=== PATIENT | male | born 1990 | race Caucasian/White ===

== ENCOUNTER → 2022-04-05 12:27 | Outpatient (BNVA) | payer SELFPAY | PROVIDERS: PCP Family Medicine; Visit Provider Emergency Medicine | DX: S99.911A Unspecified injury of right ankle, initial encounter (principal); X58.XXXA Exposure to other specified factors, initial encounter; M79.89 Other specified soft tissue disorders | CPT/HCPCS: 73610 ==

== ENCOUNTER 2024-10-20 | Emergency (ER) | payer SELFPAY ==
[2024-10-20 00:21] VITALS: BP 123/85; PULSE 91; RESP 15; TEMP 36.7; O2SAT 96; BMI 24.3
--- NOTE | 2024-10-20 00:46 | ED_ITS ---
HPI - Eye Problem General: Chief complaint: Eye Problems Stated complaint: got a Piece of metal in R eye Time Seen by Provider: 10/20/24 00:38 History of Present Illness: 34-year-old man who developed right eye pain this afternoon. He says he did well earlier today. He says he was using safety goggles and his guard. He says the pain developed later this afternoon. He has some redness in his eye. Related Data Previous Rx's ?Medication ?Instructions ?Recorded tramadol 50 mg tablet 50 mg PO Q4H PRN pain 7 days #28 04/05/22 tabs polymyxin B sulfate 10,000 1 drp ophthalmic (eye) Q3H 7 days 10/20/24 unit-trimethoprim 1 mg/mL eye drops #10 mL Allergies Allergy/AdvReac Type Severity Reaction Status Date / Time No Known Allergies Allergy Unverified 04/05/22 12:09 Review of Systems Narrative: Constitutional symptoms: Negative except as documented in HPI. Skin symptoms: Negative except as documented in HPI. Eye symptoms: Negative except as documented in HPI. ENMT symptoms: Negative except as documented in HPI. Respiratory symptoms: Negative except as documented in HPI. Cardiovascular symptoms: Negative except as documented in HPI. Gastrointestinal symptoms: Negative except as documented in HPI. Genitourinary symptoms: Negative except as documented in HPI. Musculoskeletal symptoms: Negative except as documented in HPI. Neurologic symptoms: Negative except as documented in HPI. Psychiatric symptoms: Negative except as documented in HPI. Endocrine symptoms: Negative except as documented in HPI. Physical Exam Narrative: EXAM NARRATIVE: General: Alert, no acute distress. Skin: warm and dry Head: Normocephalic Neck: Trachea midline Eye: Extraocular movements are intact. Ears, nose, mouth and throat: Oral mucosa moist Respiratory: Respirations are non-labored Musculoskeletal: Normal ROM Neurological: Alert and oriented, No focal neurological deficit observed. Psychiatric: Cooperative, appropriate mood & affect. Course Vital Signs: Vital signs: Vital Signs Temperature 98.0 F 10/20/24 00:21 Pulse Rate 91 10/20/24 00:21 Respiratory Rate 15 10/20/24 00:21 Blood Pressure 123/85 10/20/24 00:21 Pulse Oximetry 96 10/20/24 00:21 Oxygen Delivery Me thod Room Air 10/20/24 00:21 MDM - Eye Problem Medical Decision Making Procedure: UV fluorescein examination of the eye tetracaine applied to the affected eye. once significant analgesia occurred fluorescein dye was applied to the eye Examination under our local eye reveals no obvious corneal abrasions. No foreign bodies. I was then irrigated copiously with saline. Erythromycin applied to the eye here and a prescription was given Assessment and plan: Corneal abrasion versus Welders keratitis - Discharged home - Discussed plan with patient. Answered any questions. - Evaluation and treatment of this problem were appropriate in the emergency setting. All radiology interpretation(s) finalized by discharge Discharge Plan Discharge Patient Disposition: Home Clinical Impression: Corneal abrasion Condition: Stable Prescriptions: New polymyxin B sulf-trimethoprim 10,000 unit- 1 mg/mL drops 1 drp ophthalmic (eye) Q3H 7 Days Qty: 10 0RF Rx Instructions: while awake; do not exceed 6 doses in 24 hours No Action tramadol 50 mg tablet 50 mg PO Q4H PRN (Reason: pain) 7 Days Qty: 28 0RF Discharge Orders: Discharge ED (Routine); Ordered 10/20/24 Ordered By: Jaelyn Byers Referrals: Husam Ordoñez [Primary Care Provider] - Sanjay Strickland [Physician] - 1-3 days (Please call for follow-up appointment and thorough ophthalmologic exam.) Discharge Diet: Usual diet Discharge Activity: Increase activity as tolerated Patient Instructions: Corneal Abrasion (ED), Opioid Safety, Pain Management Activity Restrictions/Additional Instructions: Thank you for choosing [facility] for your healthcare needs today. Please realize this is an emergency room and that we are providing you with a medical screening exam and this may not be complete and all inclusive of all the testing and or work up that you may need to determine your ailment or severity of your illness. You have been screened and evaluated and felt safe for discharge. Health conditions do change or evolve sometimes and as such it is important that you follow up with your Primary Doctor to be re checked, 3-5 days is a general good time frame for follow up. You are always welcome to return to the ED for re assessment if your symptoms are worsening or you have new concerns Print Language: German Coding Level of Care Code ED Spinning Bath Person for Sheba Terry
[2024-10-20] MEDS: sodium chloride 0.9% 500 ML 999 ML IV (00:55)
[2024-10-20] MEDS: fluorescein 1 mg Strip EYE-RIGHT (00:56)
[2024-10-20] MEDS: tetracaine 0.5% Op Soln 4 mL Btl 1 DROP EYE-RIGHT (00:56)
[2024-10-20] MEDS: erythromycin Op Oint 1 gm 1 APPLIC EYE-RIGHT (01:15)
== END 2024-10-20 01:33 | disposition home or self-care (01) ==
PROVIDERS: Emergency Provider Emergency Medicine; PCP Family Medicine
DX: S05.01XA Injury of conjunctiva and corneal abrasion without foreign body, right eye, initial encounter (principal); X58.XXXA Exposure to other specified factors, initial encounter
CPT/HCPCS: 96360; 99284; J7040